=== PATIENT | female | born 1960 | race Caucasian/White ===

== ENCOUNTER 2021-02-21 09:14 | Emergency (ER) | payer OTHER ==
[~2021-02-21] VITALS: Ht 160 cm; Wt 96.2 kg
[2021-02-21 09:26] VITALS: BP 167/77
--- NOTE | 2021-02-21 09:26 | NUR ---
PT AMBULATED TO ER BED 8 WITH A STEADY GAIT.
--- NOTE | 2021-02-21 09:31 | NUR ---
60 Y/O FEMALE C/O ABD PAIN 12/18 DESCRIBES SHARP RADIATES TO RIGHT FLANK [id number] BUT WORSENED X2DAYS. DENIES N/V, DENIES FEVER/CHILLS, DENIES HEMATURIA. ABD IS LARGE, ROUND, SOFT, TENDER TO PALPATION IN RUQ, BOWEL SOUNDS ACTIVE X4, LAST BM 02/20/21. PMH: SHIRAZ VÁZQUEZA
--- NOTE | 2021-02-21 09:31 | NUR ---
DR. BRAMBILA AT PT BEDSIDE FOR FURTHER EVALUATION.
[2021-02-21] MEDS ORDERED: KETOROLAC 30 MG/ML VIAL IVP ONE (09:35)
[2021-02-21] MEDS ORDERED: NACL 0.9% 1,000 ML IV SCH (09:35)
--- NOTE | 2021-02-21 09:40 | NUR ---
URINE DIP WAS DONE AND SHOWN TO DR BRAMBILA.
--- NOTE | 2021-02-21 09:45 | NUR ---
20 G IV ESTABLISHED IN L HAND. BLOOD WORK COLLECTED FROM IV AND HANDED TO SHIPPING SUPERVISOR
[2021-02-21 09:56] LABS: BASOPHILS # (AUTO) 0.1 K/uL (0.00-0.22); BASOPHILS % (AUTO) 1.1 % (0.0-2.0); EOSINOPHILS # (AUTO) 0.1 K/uL (0-0.4); EOSINOPHILS % (AUTO) 1.6 % (0.0-4.0); HEMATOCRIT 35.3 % (36-48); HEMOGLOBIN 11.7 g/dL (12.0-16.0); LYMPHOCYTES # (AUTO) 3.3 K/uL (2.5-16.5); LYMPHOCYTES % (AUTO) 36.5 % (20.5-51.1); MEAN CORPUSCULAR HEMOGLOBIN 28 pg (27-31); MEAN CORPUSCULAR HGB CONC 33 g/dL (33-37); MEAN CORPUSCULAR VOLUME 83.6 fL (80-94); MONOCYTES # (AUTO) 0.8 K/uL (0.8-1.0); MONOCYTES % (AUTO) 9.2 % (1.7-9.3); NEUTROPHILS # (AUTO) 4.7 K/uL (1.8-7.7); NEUTROPHILS % (AUTO) 51.6 % (42.2-75.2); PLATELET COUNT (AUTO) 450 K/uL (140-450); RED BLOOD CELL COUNT(AUTO) 4.22 MIL/uL (4.20-5.40); RED CELL DISTRIBUTION WIDTH 15.7 % (11.6-13.7); WHITE BLOOD COUNT (AUTO) 9.1 K/uL (4.8-10.8)
[2021-02-21 09:58] LABS: APPEARANCE,URINE CLEAR (CLEAR); BILIRUBIN,URINE NEGATIVE (NEGATIVE); BLOOD, URINE NEGATIVE (NEGATIVE); COLOR,URINE YELLOW (YELLOW); LEUKOCYTE ESTERASE ,URINE 1+ (NEGATIVE); NITRITE, URINE NEGATIVE (NEGATIVE); PH,URINE 7.5 (5.0-9.0); UGLUCOSE NEGATIVE (NEGATIVE)
--- NOTE | 2021-02-21 09:59 | NUR ---
PATINET TO CT SCAN WITH WHEELCHAIR.
[2021-02-21 10:02] LABS: RBC,URINE 0-5 /HPF (0-5); WBC,URINE 0-5 /HPF (0-5)
--- NOTE | 2021-02-21 10:13 | NUR ---
PATIENT IS BACK FROM CT SCAN.
[2021-02-21 10:15] LABS: ALBUMIN 3.3 g/dL (3.4-5.0); ANION GAP 16.3 (8-16); CARBON DIOXIDE 27.4 mmol/L (21-32); CREATININE 0.7 mg/dL (0.6-1.3); POTASSIUM 4.7 mmol/L (3.5-5.1); TOTAL BILIRUBIN 0.2 mg/dL (0.0-1.0)
[2021-02-21] MEDS ORDERED: PYR100 PO (10:45)
[2021-02-21] MEDS ORDERED: CEPH-588 PO (10:45)
[2021-02-21] MEDS ORDERED: NAPR-1560 PO (10:45)
[2021-02-21] MEDS ORDERED: cefTRIAXone 1,000 MG VIAL ONE (10:53)
[2021-02-21 11:41] VITALS: BP 153/61
--- NOTE | 2021-02-21 11:42 | NUR ---
Patient discharged with v/s stable. Written and verbal after care instructions given and explained. Patient alert, oriented and verbalized understanding of instructions. Ambulatory with steady gait. All questions addressed prior to discharge. ID band removed. Patient advised to follow up with PMD. Rx of CEPHALEXIN,NAPROXEN,PHENAZOPYRIDINE given. Opportunity to ask questions provided and answered.
== END 2021-02-21 11:41 | disposition home or self-care (01) ==
LOC: MED 09:14
DX: N39.0 Urinary tract infection, site not specified (principal); Z98.890 Other specified postprocedural states
CPT/HCPCS: 36415; 74176; 80053; 81001; 83690; 85025; 87086; 96361; 96365; 96375; 99285; J0696; J1885; J7030